=== PATIENT | female | born 1990 | race African-American/Black ===

== ENCOUNTER 2023-09-26 21:36 | Emergency (ER) | payer SELFPAY ==
[2023-09-27] MEDS ORDERED: predniSONE 20 MG TAB ONE (01:22)
[2023-09-27 01:38] LABS: SARS-CoV-2 NAA Rapid Test Not Detected (NotDetected)
== END 2023-09-27 01:13 | disposition home or self-care (01) ==
LOC: ERS 21:36
DX: B34.9 Viral infection, unspecified (principal); F17.210 Nicotine dependence, cigarettes, uncomplicated; Z20.822 Contact with and (suspected) exposure to COVID-19
CPT/HCPCS: 87081; 87430; 99283; J7512